=== PATIENT | female | born 1970 | race Caucasian/White ===

== ENCOUNTER 2024-05-17 07:35 | Emergency (ER) | payer OTHER, SELFPAY ==
[2024-05-17 07:54] VITALS: BP 131/66
[2024-05-17 08:13] VITALS: BMI 28.5
--- NOTE | 2024-05-17 08:54 | ED.GENMED ---
History of Present Illness
General
Chief Complaint: Rabies
Source: patient
Exam Limitations: none
Time Seen by Provider: 05/17/24 08:53
Nursing documentation reviewed up to this point in time: agreed with
History of Present Illness
History of Present Illness:
53 y/o F with h/o chronic back pain, spinal cord stimulator, kidney stones
was bit by a bat on her left hand. her horse stomped on the bat and she went to pick it up and iddn't realize what it was and it bit her and then she did kill it and collect it and bring it with her
she has never had rabies series
tetanus is UTD
the wound is not visible on the hand and she has no pain
Past History
Past History
ED Past Surgical History: Appendectomy, Orthopedic and Other (Spinal cord stimulator. Nephrostomy.)
Review of Systems
Review of Systems
Allergies reviewed?: Yes
All Other Systems: Not applicable
Phy Exam
Physical Exam
Physical Exam:
GENERAL: Alert , in no apparent distress, comfortable at rest
HEAD: NCAT
CV: cap refill intact
NEUROLOGICAL: Alert and oriented, no focal neuro deficits, strength and sensation intact
SKIN: Warm and dry, no puncture wound visible
MUSCULOSKELETAL: normal hand inspection, full rom of fingers; ;
PSYCH: Normal and appropriate interaction.
Course
Orders/Labs/Results
Orders:
Orders
05/17/24 08:58
Rabies Immune Globulin/Pf [HyperRAB] 1,750 unit IM NOW STA
05/17/24 09:00
Rabies Vaccine (Pcec)/Pf [Rabavert Rabies Vacc W-Diluent] 2.5 unit IM .ONCE ONE
Vital Signs
Initial and Last Documented VS:
Initial Vital Signs
Temp Pulse Resp BP Pulse Ox
98.7 F 78 20 131/66 100
05/17/24 07:54 05/17/24 07:54 05/17/24 07:54 05/17/24 07:54 05/17/24 07:54
Last Documented Vital Signs
Temp Pulse Resp BP Pulse Ox
98.7 F 78 20 131/66 100
05/17/24 07:54 05/17/24 07:54 05/17/24 07:54 05/17/24 07:54 05/17/24 07:54
MDM/Problems Addressed
Differential Diagnosis Includes:
rabies exposure
MDM/Problems Addressed:
53 y/o F
bit by a bat which she collected
tetanus UTD
bat is now
will iniitate rabies series
*Critical Care Note
Total Time (30-74mins, 75-104mins- exclusive of procedures): Not Applicable
ED Attending Note
-
Portions of this chart may have been created with voice recognition software.� Occasional wrong word or��sound alike� substitutions may have occurred due to the inherent limitations of voice recognition software.
Discharge Plan
Departure
Patient Disposition: Home (Routine Discharge)
Date of Disposition: 05/17/24
Time of Disposition: 09:26
Patient with high blood pressure during this ER visit?: No
Condition: Fair
Covid-19: Not Applicable
Discharge Problem:
Rabies exposure
Discharge Problem:
(Ruled Out): Depression
Instructions: Rabies (DC), Rabies Vaccine CDC Vaccine Information Statement (VIS)
Prescriptions:
New
rabies vacc,human diploid (PF) 2.5 unit recon soln
1 ml IM ONCE Qty: 3 0RF
Rx Instructions:
1 ML IM ON 05/20, 05/24 AND 05/31
No Action
tramadol 50 mg Tablet
50 mg PO Q6H PRN (Reason: moderate-severe pain)
multivitamin,tx-minerals Tablet
1 tab PO DAILY
duloxetine 60 mg Capsule,Delayed Release(Dr/Ec)
60 mg PO DAILY
Mounjaro 10 mg/0.5 mL pen injector
10 mg SC DEAL
levothyroxine 175 mcg Tablet
175 mcg PO DAILY@0700
omega 3-kxw-pdl-fish oil [Fish Oil] 1,000 mg (120 mg-180 mg) Capsule
2 cap PO DAILY
Stand Alone Forms: Rabies Vaccine Post Exp Dosing
Activity Restrictions/Additional Instructions:
RABIES SERIES WAS INITIATED TODAY
YOU CAN RETURN TO THE ER ON 05/20 FOR THE 2ND SHOT
THEN TO THE INFUSION CENTER ON THE ADDITIONAL 2 DAYS FOR YOUR RABIES VACCINES
RETURN SOONER FOR ANY CONCERNS.
YOU CAN TAKE THE BAT TO A VET OR HEALTH DEPARTMENT TO HAVE IT TESTED
Interventions
Interventions:
*Risk Screen - Suicide Last Done: 05/17/24 08:59
*General Assessment Last Done: 05/17/24 08:59
*Neglect/Abuse Screening Last Done: 05/17/24 08:59
ED- Fall Risk Assessment Last Done: 05/17/24 08:59
*ED COVID-19 Vaccine History Last Done: 05/17/24 08:59
*Nursing Disposition Last Done: 05/17/24 09:46
Discharge Date and Time
Discharge Date/Time: 05/17/24 09:47
Print Language: VIET[place]ESE
[2024-05-17] MEDS: HyperRAB 1750 UNIT IM (09:29)
[2024-05-17] MEDS: RABAVERT RABIES VACC W-DILUENT 2.5 UNIT IM (09:29)
== END 2024-05-17 09:47 | disposition home or self-care (01) ==
LOC: EMR 07:35
PROVIDERS: EMERGENCY PHYSICIAN Student in an Organized Health Care Education/Training Program; FAMILY PHYSICIAN Internal Medicine
DX: Z20.3 Contact with and (suspected) exposure to rabies (principal); Z23 Encounter for immunization; W55.81XA Bitten by other mammals, initial encounter; K21.9 Gastro-esophageal reflux disease without esophagitis; M06.9 Rheumatoid arthritis, unspecified; F32.A Depression, unspecified; Z87.442 Personal history of urinary calculi; Z96.82 Presence of neurostimulator
CPT/HCPCS: 99284; 96372; 90471; 90375; 90675

== ENCOUNTER 2024-05-20 07:28 | Emergency (ER) | payer OTHER, SELFPAY ==
[2024-05-20 07:32] VITALS: BP 129/85
--- NOTE | 2024-05-20 07:35 | ED.GENMED ---
History of Present Illness
General
Chief Complaint: Rabies
Time Seen by Provider: 05/20/24 07:34
History of Present Illness
History of Present Illness:
HPI: The patient presents for her second rabies vaccination. Her horse stepped on a baby bat and she was exposed to some blood at the left hand. Since the infusion center is closed today and tomorrow she came in here for the second shot.
EXAM:
GENERAL: Well appearing in no distress
HEENT: Moist oral mucosa
NEUROLOGIC: Excellent strength all extremities, no obvious coordination deficits
PSYCHIATRIC: Appropriate mental status, normal insight and judgement
EXTREMITIES: Nontender, no edema, moves all extremities equally
SKIN: No rash, no lesions
TIME OF INITIAL ENCOUNTER: 7:30 AM
NUMBER AND COMPLEXITY OF PROBLEMS ADDRESSED AT THE ENCOUNTER
� Chronic conditions affecting care: GERD, depression
� Acute Exacerbation and/or Progression of Chronic Illness: This is an acute problem
� Differential Diagnosis includes: No differential needed
AMOUNT AND/OR COMPLEXITY OF DATA TO BE REVIEWED AND ANALYZED
� I performed an independent evaluation of and my interpretation is:
EKG:
CT:
X-rays:
Laboratory Studies:
Other:
� Review of other/old records: I reviewed the notes from 05/17/2024 when she was here for concern for rabies exposure
� Clinical information was obtained by an independent historian: None needed
� Prescriptions/Medications Considered but not given:
� Further testing considered but not performed:
RISK OF COMPLICATIONS AND/OR MORBIDITY OR MORTALITY OF PATIENT MANAGEMENT
� Social determinants of health affecting care: Lives at home
� Discussion with other providers:
� Escalation of care including admission/observation vs risk of discharge considered: The patient was given her second rabies vaccination and she will continue her further treatment with the infusion center
Past History
Past History
ED Past Surgical History: Appendectomy, Orthopedic and Other (Spinal cord stimulator. Nephrostomy.)
Phy Exam
Physical Exam
Physical Exam:
See HPI
Course
Orders/Labs/Results
Orders:
Orders
05/20/24 07:35
Rabies Vaccine (Pcec)/Pf [Rabavert Rabies Vacc W-Diluent] 2.5 unit IM .ONCE ONE
Vital Signs
Initial and Last Documented VS:
Initial Vital Signs
Temp Pulse Resp BP Pulse Ox
99.0 F 78 16 129/85 98
05/20/24 07:32 05/20/24 07:32 05/20/24 07:32 05/20/24 07:32 05/20/24 07:32
Last Documented Vital Signs
Temp Pulse Resp BP Pulse Ox
99.0 F 78 16 129/85 98
05/20/24 07:32 05/20/24 07:32 05/20/24 07:32 05/20/24 07:32 05/20/24 07:32
*Critical Care Note
Total Time (30-74mins, 75-104mins- exclusive of procedures): Not Applicable
ED Attending Note
-
Portions of this chart may have been created with voice recognition software.� Occasional wrong word or��sound alike� substitutions may have occurred due to the inherent limitations of voice recognition software.
Discharge Plan
Departure
Patient Disposition: Home (Routine Discharge)
Date of Disposition: 05/20/24
Time of Disposition: 07:37
Patient with high blood pressure during this ER visit?: Yes
Discharge Problem:
Rabies, need for prophylactic vaccination against
Instructions: Rabies Vaccine, BLOOD PRESSURE
Prescriptions:
No Action
tramadol 50 mg Tablet
50 mg PO Q6H PRN (Reason: moderate-severe pain)
multivitamin,tx-minerals Tablet
1 tab PO DAILY
duloxetine 60 mg Capsule,Delayed Release(Dr/Ec)
60 mg PO DAILY
Mounjaro 10 mg/0.5 mL pen injector
10 mg SC DEAL
levothyroxine 175 mcg Tablet
175 mcg PO DAILY@0700
omega 3-yhq-ncq-fish oil [Fish Oil] 1,000 mg (120 mg-180 mg) Capsule
2 cap PO DAILY
rabies vacc,human diploid (PF) 2.5 unit recon soln
1 ml IM ONCE Qty: 3 0RF
Rx Instructions:
1 ML IM ON 05/20, 05/24 AND 05/31
Stand Alone Forms: Rabies Vaccine Post Exp Dosing
Activity Restrictions/Additional Instructions:
Follow-up as previously recommended at the infusion center for further treatment
Discharge Date and Time
Print Language: GERMAN
[2024-05-20] MEDS: RABAVERT RABIES VACC W-DILUENT 2.5 UNIT IM (08:31)
== END 2024-05-20 08:53 | disposition home or self-care (01) ==
LOC: EMR 07:28
PROVIDERS: EMERGENCY PHYSICIAN Emergency Medicine; FAMILY PHYSICIAN Hospitalist
DX: Z20.3 Contact with and (suspected) exposure to rabies (principal); Z23 Encounter for immunization; Z90.49 Acquired absence of other specified parts of digestive tract
CPT/HCPCS: 99281; 90471; 90675